=== PATIENT | female | born 1970 | race Two or more races ===

== ENCOUNTER 2024-11-25 19:20 | Emergency (ER) | payer OTHER ==
[~2024-11-25] VITALS: Ht 157.5 cm; Wt 51.3 kg
[2024-11-25] MEDS ORDERED: CLEOCIN HCL300 MG (19:48)
[2024-11-25] MEDS ORDERED: AUGMENTIN XR 11 EACH (19:48)
[2024-11-25] MEDS ORDERED: PIPERACILLIN/TAZOBACTAM SODIUM 3.375 GM VIAL IV STA (20:55)
[2024-11-25 22:32] LABS: HEMATOCRIT 36.7 % (36.0-45.00); HEMOGLOBIN 12.5 g/dL (12.0-15.00); MEAN CORPUSCULAR HGB CONC 34.1 g/dl (32.0-36.0); PLATELET COUNT 205 K/uL (150-450); RED BLOOD COUNT 4.17 M/uL (4.00-6.00); RED CELL DISTRIBUTION WIDTH 14.3 % (11.5-14.5)
[2024-11-25 23:00] LABS: CALCIUM 8.8 mg/dL (8.5-10.1); CREATININE SERUM 0.84 mg/dL (0.55-1.02); GFR 70.39; POTASSIUM 3.88 mEq/L (3.5-5.1)
[2024-11-26] MEDS ORDERED: PIPERACILLIN/TAZOBACTAM SODIUM 3.375 GM in 0.9 % SODIUM CHLORIDE 100 ML IV SCH (02:52)
[2024-11-26] MEDS ORDERED: 0.9 % SODIUM CHLORIDE 500 ML IV ONE (03:00)
[2024-11-26] MEDS ORDERED: PIPERACILLIN/TAZOBACTAM SODIUM 3.375 GM VIAL IV ONE (06:36)
[2024-11-26] MEDS ORDERED: KETOROLAC TROMETHAMINE 30 MG VIAL IV STA (06:53)
[2024-11-26] MEDS ORDERED: KETOROLAC TROMETHAMINE 30 MG VIAL ONE (07:03)
[2024-11-26] MEDS ORDERED: VANCOMYCIN HCL 1,000 MG VIAL IV ONE (09:45)
[2024-11-26] MEDS ORDERED: VANCOMYCIN HCL 1,000 MG VIAL ONE (10:11)
[2024-11-26 13:21] VITALS: BP 120/85; O2SAT 97
== END 2024-11-26 13:23 | disposition designated cancer center or children's hospital (05) ==
LOC: ER 19:23
PROVIDERS: General Practice
DX: M27.2 Inflammatory conditions of jaws (principal); R59.0 Localized enlarged lymph nodes